=== PATIENT | female | born 1965 | race Caucasian/White ===

== ENCOUNTER 2024-07-11 16:39 | Inpatient (IN) | payer MEDICARE, SELFPAY ==
[2024-07-11 17:01] VITALS: BP 128/64; BP 164/90; PULSE 112; PULSE 125; RESP 20; TEMP 36.9; O2SAT 97; O2SAT 98; BMI 42.7
--- NOTE | 2024-07-11 17:45 | ECG_ITS ---
Test Reason : AFIB Blood Pressure : / mmHG Vent. Rate : 107 BPM Atrial Rate : 107 BPM P-R Int : 178 ms QRS Dur : 080 ms QT Int : 344 ms P-R-T Axes : 053 -08 010 degrees QTc Int : 459 ms Sinus tachycardia Possible Left atrial enlargement Possible Anterior infarct , age undetermined Abnormal ECG No previous ECGs available Referred By: Generic ED Physician Electronically Signed By:MARLENE BAKER
--- NOTE | 2024-07-11 18:12 | PC.NURSE ---
Patient sitting in room in chair, calm and cooperative but suspicious, talkative and non compliant with wearing the cardiac monitoring or SpO2 probe to monitor HR. Patient reports that until I can see my phone again I can't do that.
--- NOTE | 2024-07-11 18:13 | PC.NURSE ---
Changed over by security, belongings in C2 in [facility] closet.
[2024-07-11 18:21] LABS: Appearance Urine Cloudy; Color Urine Yellow; Glucose Urine UA Negative (Negative); Leukocyte Esterase Urine Large (3+) (Negative); Nitrite Urine Negative (Negative); UMIC TRIGGER UACC YES; Urine Blood Negative (Negative); Urine Ketones Trace mg/dL (Negative); Urine Protein Trace mg/dL (Neg-Trace)
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
[2024-07-11 18:35] LABS: Bacteria Urine 1+ (None Seen); RBC Urine 0-2 /HPF (0-2); UACC Culture Trigger YES; WBC Urine >50 /HPF (0-5)
[2024-07-11 18:36] LABS: Amphetamine Screen Urine Not Detected (Not Detect); Barbiturates, Urine Not Detected (Not Detect); Benzodiazepines Screen Urine Not Detected (Not Detect); Buprenorphine Scr Not Detected (Not Detect); Cannabinoid Screen Urine Not Detected (Not Detect); Cocaine Screen Urine Not Detected (Not Detect); Fentanyl, urine Not Detected (Not Detect); Methadone Screen, Urine Not Detected (Not Detect); Opiate Screen Urine Not Detected (Not Detect); Oxycodone Screen Urine Not Detected (Not Detect); Phencyclidine Screen Urine Not Detected (Not Detect)
[2024-07-11 18:37] LABS: MANUAL DIFF FLAG NO
[2024-07-11 18:38] LABS: Basophils Absolute Auto 0.1 X10*3/uL (0.0-0.2); Basophils Percent Auto 0.7 % (0-2); Eosinophils Percent Auto 0.2 % (0-4); Hematocrit 42.9 % (37.0-47.0); Hemoglobin 14.4 g/dl (12.0-16.0); Imm Gran Abs Auto 0.05 X10*3/uL (0.00-0.03); Imm Gran Pct Auto 0.4 % (0.0-0.4); Lymphocytes Absolute Auto 1.4 X10*3/uL (1.2-4.9); Lymphocytes Percent Auto 11.1 % (20-40); Mean Corpuscular HGB Conc 33.6 g/dl (31.0-35.0); Mean Corpuscular Hemoglobin 28.3 pg (27.0-33.0); Mean Corpuscular Volume 84.4 fL (80.0-98.0); Mean Platelet Volume 9.3 fL (9.4-12.3); Monocytes Absolute Auto 0.6 X10*3/uL (0.1-1.2); Monocytes Percent Auto 4.7 % (2-11); Neutrophils Absolute Auto 10.1 x10*3/uL (2.0-8.3); Neutrophils Percent Auto 82.9 % (45-73); Platelet Count 317 X10*3/uL (160-400); Red Blood Count 5.08 X10*6/uL (4.20-5.50); Red Cell Distribution Width 13.8 % (11.0-16.0); White Blood Count 12.2 X10*3/uL (4.8-10.8)
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
[2024-07-11 18:52] LABS: Salicylate < 5.0 mg/dL (15-30)
[2024-07-11 18:53] LABS: Anion Gap 13 (12-20); Blood Urea Nitrogen 18 mg/dL (9-16); Calcium 9.6 mg/dL (8.4-10.2); Carbon Dioxide 28 mmol/L (22-29); Chloride 104 mmol/L (96-108); Creatinine Clr Calc Pharmacy 82.5; Estimated Glomerular Filt Rate 60; Ethanol < 10 mg/dL; Glucose Random 120 mg/dL (60-115); Potassium 3.6 mmol/L (3.3-5.1); Sodium 141 mmol/L (135-145)
[2024-07-11 18:55] VITALS: BP 175/89; PULSE 113; RESP 18; O2SAT 98
--- NOTE | 2024-07-11 19:15 | PC.NURSE ---
Report given to Carlos, patient transferred to behavioral health pod.
--- NOTE | 2024-07-11 19:57 | MHC.EDTECH ---
Pt requesting to speak to correctional case records supervisor. SANDRA Roque made aware.
--- NOTE | 2024-07-11 23:14 | PC.NURSE ---
patient transitioned into pod and asked to call police, given non emergencey number. patient called times two to non emergent number and started asking for police to come to take a statement about false accusations, after the second call wherein it appeared she would continue to call police t/w set limit stating she could call during business hours and it was unfair for her to utilize resources unecessarily. it also seemed interesting to me that on one hand she claims to have no heart condition and then when talking to police she stated she did have a heart condition and seemingly trying to send a plea that she was helpless here in ED. in hallway for however many hours
--- NOTE | 2024-07-12 02:24 | PC.NURSE ---
t/w advised patient it would be a better appearance on your behalf if you tried to get some sleep , patient responded i cant get any sleep and minutes thereafter adjourned to her room shut off light and laid down.
--- NOTE | 2024-07-12 05:19 | PC.NURSE ---
late entry although t/w had no success finding them on a list patient stated she was on no current medications and pharmacy was called [facility] .
--- NOTE | 2024-07-12 06:30 | PC.NURSE ---
patient ambulated to bathroom in am claimed she thinks she got food poisoning from our sandwiches, ambulated back to room and proceeded to make coughing noises, given emesis bag and told t/w would pursue medication for nausea, message sent to provider, and will be handed off to oncoming staff.
[2024-07-12] MEDS: Ondansetron ODT 4 MG TAB.RAPDIS TRANSLINGU (06:44)
--- NOTE | 2024-07-12 07:54 | PC.NURSE ---
patient on phone attempting to call passenger car cleaning supervisor and parents. educated on the need for blood work at this time to fully medically clear her for care team to see her. patient agreeable. states that she is on a time constraint to return to [place] today and does not have a psych history. denies any home medications, agreeable to antibiotics.
[2024-07-12 08:34] VITALS: BP 123/78; PULSE 93; RESP 16; TEMP 36.6; O2SAT 97
[2024-07-12 08:54] LABS: TSH reflex Free T4 3.27 uIU/mL (0.32-4.0)
--- NOTE | 2024-07-12 09:26 | MHC.CARE ---
Pt asked pod nurse to speak with CARE team in regard to her IPLOC disposition. T/W reviewed the assessment sent from [facility] co-response clinician Theresa and feels that Pt does continue to meet IPLOC at this time secondary to the report. T/W met with Pt and explained that she would be going onto an inpatient psychiatric unit and when she arrives on the unit she can speak with staff about the process to leave the unit as quickly as possible. Pt then asked to speak with a Pt advocate which T/W is told we do not specifically have. CARE team leadership was informed.
--- NOTE | 2024-07-12 09:44 | MHC.CARE ---
Pt was provided with her legal rights that apply to a Pt residing in the emergency department along with legal phone numbers she may call if she feels her rights are being violated.
[2024-07-12] MEDS: cefuroxime axetiL 250 MG TABLET PO ×2 (10:27→20:54)
--- NOTE | 2024-07-12 10:37 | PHA.MEDREC ---
Pharmacy Consult ? Medication Reconciliation Pharmacy has REVIEWED the medication reconciliation completed by nursing.
--- NOTE | 2024-07-12 11:02 | P.CNPS_ITS ---
History of Present Illness Date of Service: 07/12/24 Chief Complaint: sect. 12 Diagnostics Vital Signs (24Hr): Vital Signs - 24 hr 07/11/24 17:01 07/11/24 18:55 07/12/24 08:34 Temperature 98.4 F 97.9 F Pulse Rate 112 H 113 H 93 Respiratory Rate 20 18 16 Blood Pressure 164/90 H 175/89 H 123/78 Pulse Oximetry 97 98 97 Oxygen Delivery Method Room Air Room Air Room Air BMI result Body Mass Index 42.7 Labs 07/11/24 18:30 07/11/24 18:30 Labs: Laboratory Results - last 48 hr 07/11/24 07/11/24 07/12/24 17:59 18:30 08:11 WBC 12.2 H RBC 5.08 Hgb 14.4 Hct 42.9 MCV 84.4 MCH 28.3 MCHC 33.6 RDW 13.8 Plt Count 317 MPV 9.3 L Immature Gran % (Auto) 0.4 Neut % (Auto) 82.9 H Lymph % (Auto) 11.1 L [place] % (Auto) 4.7 Eos % (Auto) 0.2 Baso % (Auto) 0.7 Lymph # (Auto) 1.4 [place] # (Auto) 0.6 Eos # (Auto) 0.0 Baso # (Auto) 0.1 Abs Immat Gran (auto) 0.05 H Absolute Neuts (auto) 10.1 H Absolute Nucleated RBC 0.000 Nucleated RBC % (auto) 0.0 Sodium 141 Potassium 3.6 Chloride 104 Carbon Dioxide 28 Anion Gap 13 BUN 18 H Creatinine 0.96 Estim Creat Clear Calc 82.5 Estimated GFR 60 Random Glucose 120 H Calcium 9.6 TSH 3.27 Urine Color Yellow Urine Appearance Cloudy Urine pH 6.0 Ur Specific [place] 1.020 Urine Protein Trace Urine Glucose (UA) Negative Urine Ketones Trace Urine Blood Negative Urine Nitrite Negative Ur Leukocyte Esterase Large (3+) H Urine RBC 0-2 Urine WBC >50 H Ur Squamous Epith Cells 3-5 Urine Bacteria 1+ Hyaline Casts 3-5 Salicylates < 5.0 L Urine Opiates Screen Not Detected Ur Buprenorphine Scrn Not Detected Ur Oxycodone Screen Not Detected Urine Methadone Screen Not Detected Urine Fentanyl Screen Not Detected Ur Barbiturates Screen Not Detected Ur Phencyclidine Scrn Not Detected Ur Amphetamines Screen Not Detected U Benzodiazepines Scrn Not Detected Urine Cocaine Screen Not Detected U Marijuana (THC) Screen Not Detected Ethyl Alcohol < 10 Medications Medications Current Medications Cefuroxime Axetil (Cefuroxime Axetil 250 Mg Tablet) 250 mg PO BID ANTONIO Stop: 07/18/24 21:01 Last Admin: 07/12/24 10:27 Dose: 250 mg Allergies Allergies Allergy/AdvReac Type Severity Reaction Status Date / Time Penicillins Allergy Hives Verified 07/11/24 17:08 Assessment & Plan Total time managing care of this patient today ____ minutes.
--- NOTE | 2024-07-12 12:21 | PC.NURSE ---
currently meeting with psychiatry at this time
--- NOTE | 2024-07-12 13:15 | HO.PSYADMNOT ---
HPI Date of Service: 07/12/24 Chief Complaint: depression, agitation Sources of Information: patient interviewed, chart reviewed and crisis/core team assessment reviewed HPI Subjective Notes: Pope Warning, Conditional Voluntary and Section 12B Diagnostics Vital Signs (24Hr): Vital Signs - 24 hr 07/11/24 17:01 07/11/24 18:55 07/12/24 08:34 Temperature 98.4 F 97.9 F Pulse Rate 112 H 113 H 93 Respiratory Rate 20 18 16 Blood Pressure 164/90 H 175/89 H 123/78 Pulse Oximetry 97 98 97 Oxygen Delivery Method Room Air Room Air Room Air BMI result Body Mass Index 42.7 Labs 07/11/24 18:30 07/11/24 18:30 Labs: Laboratory Results - last 48 hr 07/11/24 07/11/24 07/12/24 17:59 18:30 08:11 WBC 12.2 H RBC 5.08 Hgb 14.4 Hct 42.9 MCV 84.4 MCH 28.3 MCHC 33.6 RDW 13.8 Plt Count 317 MPV 9.3 L Immature Gran % (Auto) 0.4 Neut % (Auto) 82.9 H Lymph % (Auto) 11.1 L [place] % (Auto) 4.7 Eos % (Auto) 0.2 Baso % (Auto) 0.7 Lymph # (Auto) 1.4 [place] # (Auto) 0.6 Eos # (Auto) 0.0 Baso # (Auto) 0.1 Abs Immat Gran (auto) 0.05 H Absolute Neuts (auto) 10.1 H Absolute Nucleated RBC 0.000 Nucleated RBC % (auto) 0.0 Sodium 141 Potassium 3.6 Chloride 104 Carbon Dioxide 28 Anion Gap 13 BUN 18 H Creatinine 0.96 Estim Creat Clear Calc 82.5 Estimated GFR 60 Random Glucose 120 H Calcium 9.6 TSH 3.27 Urine Color Yellow Urine Appearance Cloudy Urine pH 6.0 Ur Specific [place] 1.020 Urine Protein Trace Urine Glucose (UA) Negative Urine Ketones Trace Urine Blood Negative Urine Nitrite Negative Ur Leukocyte Esterase Large (3+) H Urine RBC 0-2 Urine WBC >50 H Ur Squamous Epith Cells 3-5 Urine Bacteria 1+ Hyaline Casts 3-5 Salicylates < 5.0 L Urine Opiates Screen Not Detected Ur Buprenorphine Scrn Not Detected Ur Oxycodone Screen Not Detected Urine Methadone Screen Not Detected Urine Fentanyl Screen Not Detected Ur Barbiturates Screen Not Detected Ur Phencyclidine Scrn Not Detected Ur Amphetamines Screen Not Detected U Benzodiazepines Scrn Not Detected Urine Cocaine Screen Not Detected U Marijuana (THC) Screen Not Detected Ethyl Alcohol < 10 Meds/Allergies Meds Home Medications ?Medication ?Instructions ?Recorded ?Confirmed ?Type No Known Home Meds 07/11/24 07/11/24 History Allergies Allergies Allergy/AdvReac Type Severity Reaction Status Date / Time Penicillins Allergy Hives Verified 07/11/24 17:08 Assessment & Plan Statement Statement: I have reviewed the history and physical and performed a pertinent examination on my patient. No changes have occurred unless specified. If the History and Physical was not performed prior to admission, the Hospitalist's service will be consulted for completing the admission physical. Time Spent With Patient Time: Total time managing care of this patient today ____ minutes.
[2024-07-12] MEDS: Milk of Magnesia 30 ML ORAL.SUSP PO (13:21)
[2024-07-12 13:55] VITALS: BP 141/86; PULSE 106; RESP 18; TEMP 36.1; O2SAT 98
--- NOTE | 2024-07-12 14:43 | PC.NURSE ---
Called [facility] per patient's request and left voicemail providing information about her admission and how she can be contacted here.
[2024-07-12 16:04] VITALS: BMI 41.5
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
[2024-07-12] MEDS: Docusate Sodium 100 MG CAPSULE PO (18:18)
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
[2024-07-12 20:00] VITALS: BP 143/86; PULSE 92; RESP 18; TEMP 36.2; O2SAT 96
[2024-07-13 08:00] VITALS: BP 139/60; PULSE 77; RESP 16; TEMP 36.8; O2SAT 99
[2024-07-13 09:06] LABS: Estimated Average Glucose 111 mg/dL; Hemoglobin A1c % 5.5 % (<6.0)
[2024-07-13 09:25] LABS: Thyroid Stimulating Hormone 2.93 uIU/mL (0.32-4.0)
[2024-07-13 09:28] LABS: Cholesterol 222 mg/dL (<200); HDL Cholesterol 52 mg/dL (>40); LDL Cholesterol Calculated 146 mg/dL (<100); Magnesium 2.5 mg/dL (1.6-2.6); Triglycerides 122 mg/dL (<150)
[2024-07-13 09:31] LABS: Folate 6.4 ng/mL (> or = 4.0); Vitamin B12 232 pg/mL (200-900)
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
[2024-07-13] MEDS: cefuroxime axetiL 250 MG TABLET PO ×2 (10:11→22:08)
[2024-07-13] MEDS: Nystatin Cream 15 GM TUBE 1 APPL TOPICAL ×2 (11:58→22:19)
[2024-07-13] MEDS: polyethylene glycoL 3350 17 GM POWD.PACK PO ×2 (11:58→22:10)
[2024-07-13] MEDS: Docusate Sodium 100 MG CAPSULE PO (12:01)
[2024-07-13 17:24] LABS: Bacterial Vaginosis PCR NEGATIVE (Negative); Candida Group PCR NOT DETECTED (Not Detect); Candida glab krusei PCR NOT DETECTED (Not Detect); Trichomonas vaginalis PCR DETECTED (Not Detect)
[2024-07-13 18:05] LABS: CT PCR NOT DETECTED (Not Detect.); NG PCR NOT DETECTED (Not Detect.)
[2024-07-13 20:00] VITALS: BP 133/60; PULSE 78; RESP 15; TEMP 36.4; O2SAT 97
[2024-07-13] MEDS: Magnesium Hydrox/Alum Hydrox 30 ML ORAL.SUSP PO (22:10)
[2024-07-14 08:00] VITALS: BP 131/76; PULSE 76; RESP 16; TEMP 2.4; TEMP 36.4; O2SAT 98
[2024-07-14] MEDS: Docusate Sodium 100 MG CAPSULE PO (09:25)
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
[2024-07-14] MEDS: Lactulose 20 GM/30 ML SOLUTION 30 GM PO (14:51)
[2024-07-14 20:00] VITALS: BP 140/96; PULSE 87; TEMP 36.7; O2SAT 99
[2024-07-14] MEDS: cefuroxime axetiL 250 MG TABLET PO (21:52)
[2024-07-14] MEDS: Nystatin Cream 15 GM TUBE 1 APPL TOPICAL (22:16)
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
[2024-07-15] MEDS: cefuroxime axetiL 250 MG TABLET PO ×2 (09:04→21:52)
[2024-07-15] MEDS: Nystatin Cream 15 GM TUBE 1 APPL TOPICAL ×2 (09:04→21:51)
[2024-07-15 09:29] VITALS: BP 118/59; PULSE 60; RESP 16; TEMP 36.7
[2024-07-15 19:37] VITALS: BP 146/76; PULSE 84; RESP 15; TEMP 36.3; O2SAT 97
[2024-07-16 08:00] VITALS: BP 137/61; PULSE 68; RESP 16; TEMP 36.7; O2SAT 97
[2024-07-16] MEDS: cefuroxime axetiL 250 MG TABLET PO (09:00)
[2024-07-16] MEDS: Nystatin Cream 15 GM TUBE 1 APPL TOPICAL (09:00)
[2024-07-16] MEDS: Acetaminophen 325 MG TABLET 650 MG PO (09:03)
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
[2024-07-16] MEDS: metroNIDAZOLE 500 MG TABLET 2000 MG PO (09:33)
== END 2024-07-16 11:35 | disposition home or self-care (01) | DRG 885 ==
LOC: HO.ED 07-12 13:01 → HO.PM5 07-12 13:03
PROVIDERS: Emergency Medicine; Admitting Provider Clinical Nurse Specialist Psychiatric/Mental Health, Adult; Emergency Provider Internal Medicine; Visit Provider Psychiatry & Neurology Psychiatry
DX: F29 Unspecified psychosis not due to a substance or known physiological condition (principal); F05 Delirium due to known physiological condition; N39.0 Urinary tract infection, site not specified; A59.01 Trichomonal vulvovaginitis
CPT/HCPCS: 0352U; 36415; 80048; 80061; 80179; 80307; 81001; 82607; 82746; 83036; 83735; 84439; 84443; 85025; 87086; 87491; 87591; 93005; 99284

== ENCOUNTER → 2024-07-12 12:58 | Outpatient (BNV) | payer MEDICARE, SELFPAY | PROVIDERS: Admitting Provider Clinical Nurse Specialist Psychiatric/Mental Health, Adult; Emergency Provider Internal Medicine; Visit Provider Psychiatry & Neurology Psychiatry | DX: F05 Delirium due to known physiological condition (principal); N39.0 Urinary tract infection, site not specified | CPT/HCPCS: 90792; 99231; 99232; 99239 ==